=== PATIENT | male | born 1945 | race American Indian/Alaskan Native ===

== ENCOUNTER 2017-03-31 09:18 | Day surgery (SDC) | payer MEDICARE, OTHER ==
[~2017-03-31 09:18] MED LIST: NACL BACTERIOSTATIC INFILTRATI ONE
[2017-03-31] MEDS ORDERED: SUBLIMAZE IV NR (10:05)
--- NOTE | 2017-03-31 10:05 | Anesthesia Consultation ---
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
--- NOTE | 2017-03-31 10:05 | Anesthesia Day of Surgery ---
Anesthesia Day of Surgery - Day of Surgery Patient Examined: Yes Patient H&P Reviewed: Yes Patient is NPO: Yes
[2017-03-31] MEDS ORDERED: DILAUDID IV PRN (10:06)
[2017-03-31] MEDS ORDERED: PERCOCET 5/325 PO PRN (10:06)
[2017-03-31] MEDS ORDERED: DECADRON ONE (10:17)
[2017-03-31] MEDS ORDERED: MARCAINE 0.5% 30 ML INFILTRATI ONE (10:17)
[2017-03-31] MEDS ORDERED: XYLOCAINE 1% 20 mL ONE (10:17)
[2017-03-31] MEDS ORDERED: ROBINUL ONE (10:30)
[2017-03-31] MEDS ORDERED: ADRENALIN IV ONE ×2 (10:40→12:07)
[2017-03-31] MEDS ORDERED: NACL 0.9% 1000 ML 1,000 ML IV SCH (11:00)
[2017-03-31] MEDS ORDERED: VERSED IV NR (11:00)
[2017-03-31] MEDS ORDERED: SUBLIMAZE ONE (12:25)
[2017-03-31] MEDS ORDERED: QUELICIN ONE (12:25)
[2017-03-31] MEDS ORDERED: ZEMURON IV ONE (12:25)
[2017-03-31] MEDS ORDERED: NEO SYNEPHRINE/NS Syringe(OR USE) IV ONE (12:25)
[2017-03-31] MEDS ORDERED: ePHEDrine SULFATE ONE (12:26)
[2017-03-31] MEDS ORDERED: DIPRIVAN 10 MG/ML IV ONE (12:26)
--- NOTE | 2017-03-31 13:31 | Short Stay Summary ---
Short Stay Documentation Date of service: 03/31/17 - History H&P: obtained from office - Allergies and Medications Current Medications: Allergies Iodinated Contrast- Oral and IV Dye Allergy (Verified 03/31/17 11:39) Rash STATES HE HAS NEVER HAD ORAL CONTRAST DYE Home Medications Medication Instructions Recorded Confirmed Last Taken Type AtorvaSTATin [Lipitor] 80 mg PO QHS 03/27/17 03/31/17 03/30/17 19:00 History Gabapentin [Neurontin] 400 mg PO TID 03/27/17 03/31/17 03/30/17 History Glucosam/Grant-Msm1/C/Juvencio/Bosw 1 each PO BID 03/27/17 03/27/17 03/24/17 History [Osteo Bi-Flex Caplet] Lisinopril [Zestril] 10 mg PO DAILY 03/27/17 03/31/17 03/30/17 19:00 History Multivit-Min/FA/Lycopen/Lutein 1 each PO DAILY 03/27/17 03/27/17 03/24/17 History [Centrum Silver Tablet] [place]-3/Dha/Epa/Fish Oil [[place] 3 1 each PO DAILY 03/27/17 03/27/17 03/24/17 History 500 Softgel] Active Medications Sodium Chloride (Nacl 0.9% 1000 Ml) 1,000 mls @ 100 mls/hr IV DIRECT TINO Last Admin: 03/31/17 10:20 Dose: 100 mls/hr Midazolam HCl (Versed) 2 mg IV PREOP NR Stop: 03/31/17 23:59 Last Admin: 03/31/17 10:26 Dose: 1 mg - Brief post op/procedure progress note Date of procedure: 03/31/17 Pre-op diagnosis: persistent right shoulder pain, acromioclavicular joint arthritis, partial Post-op diagnosis: other (persistent right shoulder pain, acromioclavicular joint arthritis, type III acromion, partial rotator cuff tear, extensive subacromial bursitis, degenerative wear of anterior and superior labrum) Procedure: right shoulder arthroscopy, subacromial decompression, distal clavicle excision , debriedement of partial thickness rotator cuff tear, debriedement of degenerative wear of the anterior and superior labrum, debriedement of extensive subacromial bursitis Anesthesia: GETA Findings: as above Surgeon: RENE LINDSEY Lead Retail Sales Associate: NISHANT LYNCH III Estimated blood loss: minimal Pathology: none Condition: stable - Hospital course Hospital course: no perioperative complications - Disposition Condition at discharge: Good Disposition: DC-01 TO HOME OR SELFCARE Short Stay Discharge Plan Follow up with: DIAMOND OWENS MD [Primary Care Provider] - 7 Days
[2017-03-31] MEDS ORDERED: ZOFRAN ONE (13:43)
--- NOTE | 2017-03-31 14:10 | Post Anesthesia Evaluation ---
- Post Anesthesia Evaluation Patient Participated: Yes Airway Patent: Yes Stable Respiratory Function: Yes Nausea/Vomiting: No Temp > 96.8F: Yes Pain Manageable: Yes Adequeate Hydration: Yes Anesthesia Complications: No Other Comments: IS block for analgesia
--- NOTE | 2017-03-31 15:04 | Operative Report ---
PREOPERATIVE DIAGNOSES: Persistent right shoulder pain, acromioclavicular joint arthritis, partial thickness rotator cuff tear. POSTOPERATIVE DIAGNOSES: Persistent right shoulder pain, advanced acromioclavicular joint arthritic change with type 3 acromion with inferior spurs of the distal clavicle and acromion causing severe impingement upon the rotator cuff, severe extensive subacromial bursitis, partial thickness bursal as well as articular-sided rotator cuff tear of the supraspinatus tendon, degenerative wear of the anterior and superior labrum. OPERATIVE PROCEDURE: Right shoulder arthroscopy, subacromial decompression, distal clavicle excision, debridement of degenerative wear of the anterior and superior labrum, debridement of extensive subacromial bursitis, debridement of partial thickness rotator cuff tear. SURGEON: Ulysses Gutierrez M.D. QUALITY CONTROL DIRECTOR: Laron Aponte M.D. ANESTHESIA: General plus interscalene block to the operative right upper extremity. DVT PROPHYLAXIS: Open toe thigh-high compression stockings and SCD pumps to bilateral lower extremities. PREOPERATIVE ANTIBIOTICS: Ancef 2 grams IV within 1 hour of skin incision. OPERATIVE COMPLICATIONS: None. PREOPERATIVE HISTORY AND PHYSICAL: This is a 71-year-old male who has had persistent progressive worsening right shoulder pain that is severe limiting his normal activities of daily living. The pain has failed to improve despite extensive nonoperative treatment. MRI scan was performed, which was positive for acromioclavicular joint arthritis as well as partial thickness rotator cuff tear. The patient's MRI findings and diagnosis were discussed at length and after making sure the patient understood the diagnosis, all his questions were answered. We then discussed treatment alternatives of surgical and nonsurgical including risks and benefits of both. After a long lengthy discussion, the patient opted to proceed with operative intervention. This will entail a right shoulder arthroscopy, subacromial decompression, distal clavicle excision, possible rotator cuff repair and surgery as indicated. The risks of which were discussed to include but not exclusive of infection, blood loss, nerve damage, loss of range of motion and persistent pain. Again, the patient understood, all his questions answered. He wished to proceed with operative intervention. OPERATIVE PROCEDURE: The patient was seen in the preoperative holding area with his at the bedside, at which point informed consent was reviewed and the appropriate right upper extremity was identified and then marked. Anesthesia then performed an interscalene block of the right upper extremity. After confirmation of adequate analgesia of the right upper extremity, the patient was then brought back to the operating room and placed supine on a standard operating room table, at which point, general anesthesia was administered and endotracheal tube was inserted. After confirmation of adequate general anesthesia, checking proper placement of endotracheal tube, we then made sure that all bony prominences were well padded. There were no wrinkles in the compression stockings on bilateral lower extremities and SCD pumps applied to bilateral lower extremities. The patient then sat up in the beach chair position using the beach chair positioner, which was already in place. His head was secured in nice neutral position. The well left arm was secured in a neutral position at the patient's side with the aid of well arm solorio. A pillow was placed beneath the posterior aspect of bilateral thighs, placed in slight flexion of the hips and knees making sure the popliteal fossa was free and clear. The right upper extremity was then examined under anesthesia. The patient was seen to have full range of motion without any evidence of instability. On examination under anesthesia, the right upper extremity was then prepped and draped in the usual sterile fashion. After prepping and draping, a timeout was called and appropriate right upper extremity was identified which again had been marked in the preoperative holding area. I began procedure by first making a standard posterior portal with #15 blade. Once the port was established, a cannula with a blunt trocar was inserted in the intra-articular aspect of the glenohumeral joint. This went without difficulty or damage to articular cartilage. Once in place, the arthroscopic camera was immediately placed in the anterior aspect of the shoulder joint, established an anterior portal, by first inserting an 18 gauge spinal needle between the subscap and biceps tendons under direct arthroscopic visualization. Once confirmed to be appropriate position, a 15 blade was then used to establish the anterior portal. Once the portal was established, blunt trocar was inserted to widen a portal site for an arthroscopic probe. I began a diagnostic arthroscopy, anterior aspect of shoulder joint. The patient having normal subscapularis tendon, a normal middle glenohumeral ligament. There were multiple copious amounts of adhesions which was to the anterior aspect of the shoulder joint, which was debrided using 4.0 meniscal shaver. Hemostasis was achieved with the Arthrocare ablation wand. Inspection of the labrum showed to be degenerative wear of the anterior and superior labrum, this was gently debrided using 4.0 meniscal shaver. There was mild grade 1 articular cartilage loss in central aspect of the glenoid as well as the posterior superior aspect of the humeral head. There was a normal bare area without a Hill-Sachs lesion. The posterior labrum was seen to be intact and stable when probed. There was a partial thickness tear involving the junction of the supra as well as infraspinatus tendon measuring approximately 20-25% of the width of the tendon. This was gently debrided using 4.0 meniscal shaver. Inspection of the bicep tendon was noted to be intact. Next, the shoulder was in its normal relation. Now, the arthroscopic pump was then turned off to make sure there was good hemostasis. Once this was confirmed, the extraneous fluid was suctioned from the glenohumeral joint. Following this, all the arthroscopic instrumentation was removed from the glenohumeral joint and then placed in subacromial space. Once in the subacromial space, we saw there was severe advanced extensive subacromial bursitis with massive spurring of the inferior aspect of the acromion and distal clavicle. A third incision was made on the lateral aspect in the shoulder in line of the distal clavicle away from axillary nerve. Once the incision was made, the extensive subacromial bursitis was debrided using a 4.0 meniscal shaver and hemostasis was achieved with the Arthrocare ablation wand. Once completed, the arm was placed through a range of motion. We saw there was severe impingement of the rotator cuff on undersurface of the acromion and the distal clavicle. The soft tissue was removed from the undersurface of the acromion using Arthrocare ablation wand and then using 4.0 hooded barrel bur, we carried out a subacromial decompression in standard fashion from inferior and superior, posterior and anterior to make sure not to leaving a residual anterior hook. We turned our attention to the distal clavicle which was also seen to be arthritic and contributing to impingement and using a 4.0 hooded barrel bur, we carried out a distal clavicle excision to a depth of approximately 6-8 mm. We turned our attention to the bursal side rotator cuff in the exact position of the previous inferior spur of the acromion. There was a linear tear located directly in this location near the supraspinatus tendon. This was gently debrided down to healthy tissue as it was not full thickness encompassing approximately 20-25% width of the tendon. Once completed, the arm was again placed through full range of motion under direct arthroscopic visualization. We saw there was no further impingement of the rotator cuff upon undersurface of the acromion or the distal clavicle. Following this, the arthroscopic pump was turned off to make sure there was good hemostasis. Once this was confirmed, extraneous fluid was suctioned from the subacromial space using arthroscopic cannula. Following all the arthroscopic instrument was removed, the 3 portal sites were closed with 3-0 nylon in simple fashion. Adaptic, 4 x 4s, ABD, paper tape, small abduction sling was applied. The patient was sat down from the beach chair in supine position and was awakened from general anesthesia without complications and taken to recovery room in stable condition. Standard postoperative orders were written. [facility]# [id number] MELONIE/PATTI
[2017-03-31 16:04] VITALS: BP 159/79
== END 2017-03-31 15:46 | disposition home or self-care (01) ==
LOC: OR 09:18
PROVIDERS: ATTEND Orthopaedic Surgery
DX: S46.011A Strain of muscle(s) and tendon(s) of the rotator cuff of right shoulder, initial encounter (principal); M19.011 Primary osteoarthritis, right shoulder; M75.41 Impingement syndrome of right shoulder; M75.51 Bursitis of right shoulder; I10 Essential (primary) hypertension; G47.30 Sleep apnea, unspecified; E66.9 Obesity, unspecified; E11.9 Type 2 diabetes mellitus without complications; K21.9 Gastro-esophageal reflux disease without esophagitis; E78.5 Hyperlipidemia, unspecified; Z68.33 Body mass index [BMI] 33.0-33.9, adult; Z79.899 Other long term (current) drug therapy; Z87.891 Personal history of nicotine dependence; Z91.09 Other allergy status, other than to drugs and biological substances; X58.XXXA Exposure to other specified factors, initial encounter; Y93.89 Activity, other specified; Y92.89 Other specified places as the place of occurrence of the external cause; Y99.8 Other external cause status
CPT/HCPCS: 29824; 29826; 82962; J0171; J0330; J1100; J2250; J2370; J2405; J2704; J3010; J7030; L1830